=== PATIENT | female | born 1975 | race Caucasian/White ===

== ENCOUNTER → 2017-08-14 | Outpatient (CLI) | payer OTHER ==
--- NOTE | 2017-08-14 07:57 | MM ---
Reason for exam: screening (asymptomatic). Baseline mammogram. History: Family history of breast cancer in mother at age 37. Physical Findings: Nurse did not find any significant physical abnormalities on exam. MG Screening Mammo w CAD Bilateral CC and MLO view(s) were taken. The breast tissue is heterogeneously dense. This may lower the sensitivity of mammography. No significant new findings when compared with previous films. These results were verbally communicated with the patient and result sheet given to the patient on 08/14/17. ASSESSMENT: Benign, BI-RAD 2 RECOMMENDATION: Routine screening mammogram of both breasts in 1 year.
== END | disposition home or self-care (01) ==
LOC: RADMAMWWP 06:58
PROVIDERS: ATTEND Family Medicine
DX: Z12.31 Encounter for screening mammogram for malignant neoplasm of breast (principal); Z80.3 Family history of malignant neoplasm of breast
CPT/HCPCS: 77067

== ENCOUNTER → 2017-08-19 | Outpatient (CLI) | payer OTHER ==
--- NOTE | 2017-08-19 20:57 | MR ---
EXAMINATION TYPE: MR brain wo/w con DATE OF EXAM: 08/19/2017 COMPARISON: NONE HISTORY: Right Facial Numbness & Right Thigh Numbness. CONTRAST: Performed utilizing 7.5 mL intravenous Gadavist gadolinium contrast. TECHNIQUE: Multiplanar, multiecho imaging on a 3.0 [place] magnet is performed through the brain. Stud y is performed within 24 hours of arrival to the hospital. The craniovertebral junction is normal. The pituitary is normal. Diffusion-weighted imaging is performed. No abnormal hyperintensity is present to suggest an acute i ntracranial infarct or acute ischemic change. Signal through the brain is normal. Ventricles and sulci are appropriate for the patient age. No enlarged extra-axial spaces are evident. No abnormal enhancement is evident following contrast administration. IMPRESSIONS: 1. Normal pre and postcontrast MRI brain
== END | disposition home or self-care (01) ==
LOC: RADMRIMAIN 16:17
PROVIDERS: ATTEND Family Medicine
DX: R20.0 Anesthesia of skin (principal); R20.8 Other disturbances of skin sensation
CPT/HCPCS: 70553; A9581

== ENCOUNTER → 2019-09-23 | Outpatient (CLI) | payer OTHER ==
--- NOTE | 2019-09-25 13:17 | MM ---
Reason for exam: screening (asymptomatic). Last mammogram was performed 2 years and 1 month ago. History: Family history of breast cancer in mother at age 37. Physical Findings: A clinical breast exam by your physician is recommended on an annual basis and results should be correlated with mammographic findings. MG Screening Mammo w CAD Bilateral CC and MLO view(s) were taken. Prior study comparison: August 14, 2017, bilateral MG screening mammo w CAD. The breast tissue is heterogeneously dense. This may lower the sensitivity of mammography. No significant changes when compared with prior studies. ASSESSMENT: Negative, BI-RAD 1 RECOMMENDATION: Routine screening mammogram of both breasts in 1 year.
== END | disposition home or self-care (01) ==
LOC: RADMAMWWP 16:28
PROVIDERS: ATTEND Family Medicine
DX: Z12.31 Encounter for screening mammogram for malignant neoplasm of breast (principal); Z80.3 Family history of malignant neoplasm of breast
CPT/HCPCS: 77067

== ENCOUNTER → 2021-03-08 | Outpatient (CLI) | payer OTHER ==
[2021-03-08 23:29] LABS: Basophils # (A) 0.04 X 10*3/uL (0.00-0.10); Basophils % (A) 0.4 %; Eosinophils # (A) 0.37 X 10*3/uL (0.04-0.35); Eosinophils % (A) 3.4 %; HCT 40.5 % (37.2-46.3); HGB 13.1 g/dL (12.0-15.0); Lymphocytes # (A) 3.27 X 10*3/uL (0.90-5.00); MCH 28.5 pg (27.0-32.0); MCHC 32.3 g/dL (32.0-37.0); Mean Platelet Volume 10.2 fL (9.5-12.2); Monocytes # (A) 0.63 X 10*3/uL (0.20-1.00); Monocytes % (A) 5.8 %; Neutrophils # (A) 6.56 X 10*3/uL (1.80-7.70); Platelet Count 393 X 10*3/uL (140-440); RDW 13.6 % (11.5-14.5); WBC 10.91 X 10*3/uL (4.50-10.00)
[2021-03-09 00:46] LABS: Erythrocyte Sedimentation Rate 18 mm/Hr (0-20)
[2021-03-09 03:40] LABS: African American GFR (CKD) 122.1 (60.0-200.0); Albumin 4.3 g/dL (3.80-4.90); Albumin/Globulin Ratio 1.72 (1.60-3.17); Anion Gap 10.1 mmol/L (4.00-12.00); Calcium 9.1 mg/dL (8.7-10.3); Carbon Dioxide 20.9 mmol/L (21.6-31.8); Globulin 2.5 g/dL (1.6-3.3); Non-African American GFR(CKD) 105.4 (60.0-200.0); Potassium 3.9 mmol/L (3.5-5.5); Total Bilirubin 0.2 mg/dL (0.3-1.2); Total Protein 6.8 g/dL (6.2-8.2)
[2021-03-09 03:47] LABS: Protein, Total 6.9 g/dL (6.2-8.2)
[2021-03-09 04:01] LABS: T4, Free (Free Thyroxine) 0.8 ng/dL (0.80-1.80)
[2021-03-09 07:51] LABS: Peanut IgE <0.10 kU/L; Soybean IgE <0.10 kU/L
[2021-03-09 07:52] LABS: Clam IgE <0.10 kU/L; Shrimp IgE <0.10 kU/L; Walnut IgE (Food) <0.10 kU/L
[2021-03-09 07:53] LABS: Egg White IgE 0.16 kU/L; Scallop IgE <0.10 kU/L
[2021-03-09 07:54] LABS: Codfish IgE <0.10 kU/L
[2021-03-09 12:46] LABS: Alt. alternata IgE Class CLASS 0/1; Alternaria alternata IgE 0.16 kU/L (<0.10); Asperg. fumagatus IgE 0.93 kU/L (<0.10); Asperg. fumagatus IgE Class CLASS 2; Bermuda Grass IgE 0.12 kU/L (<0.10); Birch(Com.Silvr) IgE <0.10 kU/L (<0.10); Birch(Com.Silvr) IgE Class CLASS 0; Cat Epith & Dander IgE Class CLASS 4; Clad herbarum IgE 0.17 kU/L (<0.10); Clad herbarum IgE Class CLASS 0/1; Cockroach IgE 0.18 kU/L (<0.10); Cottonwood IgE 0.15 kU/L (<0.10); Dermato. Pteronyssinus Class CLASS 3; Dermato. farinae IgE Class CLASS 4; Dog Dander IgE >100.00 kU/L (<0.10); Elm IgE 0.21 kU/L (<0.10); Maple (Box Elder) IgE 1.76 kU/L (<0.10); Maple (Box Elder) IgE Class CLASS 2; Mountain Cedar IgE 0.18 kU/L (<0.10); Mountain Cedar IgE Class CLASS 0/1; Mouse Urine IgE Class CLASS 3; Nettle IgE 0.21 kU/L (<0.10); Nettle IgE Class CLASS 0/1; Oak IgE 0.11 kU/L (<0.10); Penicillium chrysogenum IgE 0.34 kU/L (<0.10); Penicillium chrysogenum IgE Cl CLASS 0/1; Rough Marshelder IgE 0.21 kU/L (<0.10); Rough Marshelder IgE Class CLASS 0/1; Timothy Grass IgE <0.10 kU/L (<0.10); Timothy Grass IgE Class CLASS 0; White Ash IgE Class CLASS 0/1
== END | disposition home or self-care (01) ==
LOC: LABWHC1 15:56
PROVIDERS: ATTEND Allergy & Immunology
DX: L50.9 Urticaria, unspecified (principal); T78.2XXA Anaphylactic shock, unspecified, initial encounter; E06.3 Autoimmune thyroiditis; E55.9 Vitamin D deficiency, unspecified; M35.9 Systemic involvement of connective tissue, unspecified
CPT/HCPCS: 36415; 80053; 82306; 82785; 83520; 84165; 84439; 84443; 85025; 85652; 86003; 86038; 86160; 86162; 86334; 86800

== ENCOUNTER → 2021-03-13 | Outpatient (CLI) | payer OTHER ==
[2021-03-13 22:40] LABS: Basophils # (A) 0.08 X 10*3/uL (0.00-0.10); Basophils % (A) 0.7 %; Eosinophils # (A) 0.35 X 10*3/uL (0.04-0.35); Eosinophils % (A) 3.1 %; HCT 34.8 % (37.2-46.3); HGB 10.6 g/dL (12.0-15.0); Lymphocytes # (A) 2.99 X 10*3/uL (0.90-5.00); Lymphocytes % (A) 26.1 %; MCHC 30.5 g/dL (32.0-37.0); MCV 78.7 fL (80.0-97.0); Mean Platelet Volume 11.4 fL (9.5-12.2); Monocytes # (A) 0.81 X 10*3/uL (0.20-1.00); Monocytes % (A) 7.1 %; Neutrophils # (A) 7.18 X 10*3/uL (1.80-7.70); Neutrophils % (A) 62.6 %; Platelet Count 414 X 10*3/uL (140-440); RBC 4.42 X 10*6/uL (4.10-5.20); RDW 15.9 % (11.5-14.5); WBC 11.46 X 10*3/uL (4.50-10.00)
== END | disposition home or self-care (01) ==
LOC: LABWHC1 14:43
PROVIDERS: ATTEND Allergy & Immunology
DX: E03.9 Hypothyroidism, unspecified (principal); T78.3XXA Angioneurotic edema, initial encounter; T78.2XXA Anaphylactic shock, unspecified, initial encounter; E55.0 Rickets, active
CPT/HCPCS: 36415; 85025